=== PATIENT | female | born 1965 | race African-American/Black ===

== ENCOUNTER 2018-07-02 16:33 | Emergency (ER) | payer MEDICARE, MEDICAID ==
[~2018-07-02] VITALS: Ht 167.6 cm; Wt 70.0 kg
[~2018-07-02 16:33] MED LIST: ALPR2TAB2 PO; OXYC-23 PO
[2018-07-02] MEDS ORDERED: SODIUM CHLORIDE 0.9% 1,000 ML IV ONE (17:04)
[2018-07-02] MEDS ORDERED: KETOROLAC 30MG/ML VIAL IV STA (18:47)
[2018-07-02 19:21] LABS: CHLORIDE 99 mEq/L (98-107)
[2018-07-02 19:25] LABS: BASOPHILS % 0.3 % (0.0-2.0); EOSINOPHILS % 1.8 % (0.0-5.0); ETHANOL BLOOD < 10 mg/dL; HEMATOCRIT. 36.8 % (36.0-48.0); HEMOGLOBIN. 12.5 g/dL (12.0-16.0); MEAN CORPUSCULAR HEMOGLOBIN 30.5 pg (28.0-32.0); MEAN CORPUSCULAR VOLUME 89.9 fL (81.0-99.0); MEAN PLATELET VOLUME 8.6 fl (7.4-10.4); MONOCYTES % 8.3 % (2.0-8.0); NEUTROPHILS % 43.6 % (40.0-76.0); PLATELET 215 x1000/uL (130-400); RED BLOOD CELL COUNT 4.09 mill/uL (4.2-5.4); RED CELL DISTRIBUTION WIDTH 13.9 % (11.6-14.6)
[2018-07-02 19:30] LABS: CREATINE KINASE 62 IU/L (26-192)
[2018-07-02 19:39] LABS: HCG SCREEN NEGATIVE
[2018-07-02 20:06] LABS: INR 1.1; PROTHROMBIN TIME 10.8 sec (9.1-11.1)
[2018-07-02] MEDS ORDERED: ACETAMINOPHEN 325MG TABLET PO ONE (21:30)
[2018-07-02 21:35] VITALS: BP 129/88
== END 2018-07-02 21:59 | disposition home or self-care (01) ==
LOC: ER 19:42
DX: T48.1X1A Poisoning by skeletal muscle relaxants [neuromuscular blocking agents], accidental (unintentional), initial encounter (principal); R41.82 Altered mental status, unspecified; G89.29 Other chronic pain; M54.9 Dorsalgia, unspecified; Z79.82 Long term (current) use of aspirin; Z88.6 Allergy status to analgesic agent; Z79.899 Other long term (current) drug therapy; Y92.89 Other specified places as the place of occurrence of the external cause
CPT/HCPCS: 36415; 74176; 80053; 82550; 82962; 84703; 85025; 85610; 93005; 96360; 99284; G0482; J7030

== ENCOUNTER 2018-09-29 13:51 | Emergency (ER) | payer MEDICARE, MEDICAID ==
[~2018-09-29] VITALS: Ht 167.6 cm; Wt 82.0 kg
[2018-09-29] MEDS ORDERED: SODIUM CHLORIDE 0.9% 1,000 ML IV ONE (14:56)
[2018-09-29 15:30] LABS: BASOPHILS % 0.3 % (0.0-2.0); EOSINOPHILS % 1.9 % (0.0-5.0); HEMATOCRIT. 34.4 % (36.0-48.0); HEMOGLOBIN. 11.3 g/dL (12.0-16.0); LYMPHOCYTES % 24.4 % (20.0-50.0); MEAN CORPUSCULAR HEMOGLOBIN 29.8 pg (28.0-32.0); MEAN CORPUSCULAR VOLUME 90.6 fL (81.0-99.0); MEAN PLATELET VOLUME 8.3 fl (7.4-10.4); MONOCYTES % 5.8 % (2.0-8.0); NEUTROPHILS % 67.6 % (40.0-76.0); PLATELET 222 x1000/uL (130-400)
[2018-09-29 15:32] LABS: CHLORIDE 109 mEq/L (98-107)
[2018-09-29 15:35] LABS: ETHANOL BLOOD < 10 mg/dL
[2018-09-29 18:15] VITALS: BP 103/79
== END 2018-09-29 18:45 | disposition home or self-care (01) ==
LOC: ER 13:51
DX: T40.7X1A Poisoning by cannabis (derivatives), accidental (unintentional), initial encounter (principal); F17.200 Nicotine dependence, unspecified, uncomplicated; F12.10 Cannabis abuse, uncomplicated; F11.10 Opioid abuse, uncomplicated; F13.20 Sedative, hypnotic or anxiolytic dependence, uncomplicated; X58.XXXA Exposure to other specified factors, initial encounter; Z88.6 Allergy status to analgesic agent
CPT/HCPCS: 36415; 80053; 80307; 80320; 80329; 82140; 85025; 93005; 99284; J7030; G0480

== ENCOUNTER 2018-10-28 17:22 | Inpatient (IN) | payer MEDICARE, MEDICAID ==
[~2018-10-28] VITALS: Ht 165.1 cm; Wt 83.0 kg
[2018-10-28] MEDS ORDERED: ONDANSETRON HCL 4MG/2ML INJ IV STA (17:38)
[2018-10-28] MEDS ORDERED: SODIUM CHLORIDE 0.9% 1,000 ML IV ONE (17:38)
[2018-10-28 18:30] LABS: BASOPHILS % 0.4 % (0.0-2.0); EOSINOPHILS % 1.3 % (0.0-5.0); HEMATOCRIT. 38.1 % (36.0-48.0); HEMOGLOBIN. 12.7 g/dL (12.0-16.0); LYMPHOCYTES % 19.4 % (20.0-50.0); MEAN CORPUSCULAR HEMOGLOBIN 29.9 pg (28.0-32.0); MEAN CORPUSCULAR VOLUME 89.7 fL (81.0-99.0); MEAN PLATELET VOLUME 8.5 fl (7.4-10.4); MONOCYTES % 4.8 % (2.0-8.0); NEUTROPHILS % 74.1 % (40.0-76.0); PLATELET 203 x1000/uL (130-400); RED BLOOD CELL COUNT 4.25 mill/uL (4.2-5.4); RED CELL DISTRIBUTION WIDTH 13.4 % (11.6-14.6)
[2018-10-28 18:36] LABS: CHLORIDE 103 mEq/L (98-107)
[2018-10-28 18:41] LABS: ETHANOL BLOOD < 10 mg/dL
[2018-10-28] MEDS ORDERED: SODIUM CHLORIDE 0.9% 1000ML BAG (SEPSIS BOLUS) IV ONE (19:00)
[2018-10-28 22:26] LABS: CLARITY URINE CLEAR (CLEAR); COLOR URINE YELLOW (YELLOW); KETONES URINE NEGATIVE (NEGATIVE); LEUKOCYTE ESTERASE URINE NEGATIVE (NEGATIVE); NITRITE URINE NEGATIVE (NEGATIVE); OCCULT BLOOD URINE TRACE (NEGATIVE); PH URINE 5.5 (4.5-8.0); PROTEIN URINE NEGATIVE (NEGATIVE); SPECIFIC GRAVITY URINE 1.017 (1.005-1.030); UROBILINOGEN URINE 0.2 E.U./dL (0.2-1.0)
[2018-10-28] MEDS ORDERED: KETOROLAC 30MG/ML VIAL IV ONE (22:45)
[2018-10-28 22:47] LABS: *AMPHETAMINES SCREEN URINE NEGATIVE (NEGATIVE); *BARBITURATES SCREEN URINE NEGATIVE (NEGATIVE); *BENZODIAZEPINES SCREEN URINE PRESUMTIVE POSITIVE (NEGATIVE); *COCAINE SCREEN URINE PRESUMTIVE POSITIVE (NEGATIVE); CANNABINOID URINE SCREEN NEGATIVE (NEGATIVE); METHADONE URINE SCREEN NEGATIVE (NEGATIVE); OPIATES URINE SCREEN PRESUMTIVE POSITIVE (NEGATIVE); PHENCYCLIDINE URINE SCREEN NEGATIVE (NEGATIVE)
[2018-10-28] MEDS ORDERED: IPRATROPIUM/ALBUTEROL 0.5-3(2.5)MG/3ML NEB INH PRN (23:15)
[2018-10-28] MEDS ORDERED: LORAZEPAM 2MG/ML CPJ IV PRN (23:15)
[2018-10-28] MEDS ORDERED: MAGNESIUM/ALUMINUM HYDROXIDE/SIMETHICONE 30ML UDC PO PRN (23:15)
[2018-10-28] MEDS ORDERED: HYDROCODONE/ACETAMINOPHEN 5/325MG TABLET PO PRN (23:15)
[2018-10-28] MEDS ORDERED: ACETAMINOPHEN 325MG TABLET PO PRN (23:15)
[2018-10-28] MEDS ORDERED: DOCUSATE SODIUM 100MG CAPSULE PO PRN (23:15)
[2018-10-28] MEDS ORDERED: HYDRALAZINE 20MG/ML VIAL IV PRN (23:15)
[2018-10-28] MEDS ORDERED: CLONIDINE 0.1MG TABLET PO PRN (23:15)
[2018-10-29 01:00] VITALS: BP 98/74
[2018-10-29 01:22] VITALS: BP 149/94
[2018-10-29] MEDS: GUAIFENESIN 200MG/10ML SUGAR FREE UDC PO PRN ×2 (02:30→10:25)
[2018-10-29] MEDS: ONDANSETRON HCL 4MG/2ML INJ IV PRN ×2 (02:58→10:20)
[2018-10-29] MEDS: DIPHENHYDRAMINE 50MG/ML VIAL IV PRN ×2 (03:00→10:20)
[2018-10-29 04:00] VITALS: BP 129/73
[2018-10-29] MEDS ORDERED: SODIUM CHLORIDE 0.9% INJ 3ML FLUSH IVF SCH (06:00)
[2018-10-29 08:00] VITALS: BP 136/86
[2018-10-29] MEDS ORDERED: ENOXAPARIN 40MG/0.4ML SYR SUBCUT SCH (09:00)
[2018-10-29] MEDS ORDERED: TRAMADOL 50MG TABLET PO NR (09:15)
[2018-10-29] MEDS ORDERED: ALPR-341 PO (09:21)
[2018-10-29] MEDS ORDERED: ATOR20TA PO (09:21)
[2018-10-29] MEDS ORDERED: ASPI-1159 PO (09:21)
[2018-10-29] MEDS ORDERED: PROT20 PO (09:21)
[2018-10-29] MEDS ORDERED: TIZA6CAP PO (09:21)
[2018-10-29] MEDS ORDERED: VORT20TA PO (09:21)
[2018-10-29] MEDS ORDERED: QUET300T2 PO (09:21)
[2018-10-29] MEDS ORDERED: PROP20TA7 PO (09:21)
[2018-10-29] MEDS ORDERED: CHOL500063 PO (09:23)
[2018-10-29 12:00] VITALS: BP 114/69
[2018-10-29 12:40] VITALS: BP 114/69
== END 2018-10-29 15:08 | disposition home or self-care (01) | DRG 918 ==
LOC: ER 17:22 → EDBEDREQ 19:04 → 5WST 22:44 → EDBEDREQTM 22:49 → EDBEDREQ 22:49 → EDBEDREQSVC 22:49 → ENRESERV 23:22
PROVIDERS: ADMIT Internal Medicine; ATTEND Internal Medicine
DX: T40.5X1A Poisoning by cocaine, accidental (unintentional), initial encounter (principal); G89.29 Other chronic pain; I95.9 Hypotension, unspecified; T42.4X1A Poisoning by benzodiazepines, accidental (unintentional), initial encounter; F19.90 Other psychoactive substance use, unspecified, uncomplicated; M54.9 Dorsalgia, unspecified; F32.9 Major depressive disorder, single episode, unspecified; F41.9 Anxiety disorder, unspecified; Z79.899 Other long term (current) drug therapy; Z88.5 Allergy status to narcotic agent; Z88.6 Allergy status to analgesic agent; Y92.89 Other specified places as the place of occurrence of the external cause
CPT/HCPCS: 36415; 71045; 80305; 80320; 82962; 83605; 93005; 99285; J1200; J1650; J2060; J2405; J7030; G0480